=== PATIENT | female | born 1970 | race Caucasian/White ===

== ENCOUNTER 2016-09-04 06:41 | Emergency (ER) | payer OTHER ==
[~2016-09-04] VITALS: Ht 170.2 cm; Wt 68.0 kg
[~2016-09-04 06:41] MED LIST: CELEXA40 MG PO; DOLOPHINE10 MG PO; GABAPENTIN250 MG/5 M PO; PROZAC20 MG PO; TOPAMAX100 MG PO
[2016-09-04 06:59] VITALS: BP 159/100
--- NOTE | 2016-09-04 07:07 | NUR ---
PT TAKEN TO BED 5
--- NOTE | 2016-09-04 07:08 | NUR ---
Dr. Spring evaluating patient at bedside.
[2016-09-04] MEDS ORDERED: BACITRACIN OINT 500 UNITS/GM PKT TP ONE (07:16)
--- NOTE | 2016-09-04 07:17 | NUR ---
46/F BIB SELF WOUND CHECK AND STAPLE REMOVAL ON HER LEFT UPPER ARM, AND LEFT THIGH. DONE IN [facility] LAST 08.22.16. PT DENIES N/V/D; SKIN IS PINK/WARM/DRY; L UPPER ARM SMALL LUMP; MD ER DR GAYLE NOTIFIED;MD AWARES. AAOX4 WITH EVEN AND STEADY GAIT; LUNGS CLEAR BL; HR EVEN AND REGULAR; PT DENIES ANY FEVER, CP, SOB, OR COUGH AT THIS TIME; PATIENT STATES PAIN OF 8/10 AT THIS TIME; PATIENT POSITIONED FOR COMFORT; HOB ELEVATED; BEDRAILS UP X2; BED DOWN. ER MD MADE AWARE OF PT STATUS.
[2016-09-04 07:26] VITALS: BP 160/107
--- NOTE | 2016-09-04 07:26 | NUR ---
Patient discharged with BP160/107;NO S/S OF HEADACHE OR DIZZINESS;MD PRANEETH GAYLE NOTIFIED; AWARED.. Written and verbal after care instructions given and explained. Patient verbalized understanding. Ambulatory with steady gait. All questions addressed prior to discharge. Advised to follow up with PMD.
== END 2016-09-04 07:26 | disposition home or self-care (01) ==
LOC: MED 06:42
DX: S41.112D Laceration without foreign body of left upper arm, subsequent encounter (principal); S31.114D Laceration without foreign body of abdominal wall, left lower quadrant without penetration into peritoneal cavity, subsequent encounter; X58.XXXD Exposure to other specified factors, subsequent encounter; Y92.89 Other specified places as the place of occurrence of the external cause; Y99.8 Other external cause status